=== PATIENT | female | born 1970 | race Caucasian/White ===

== ENCOUNTER 2016-12-29 10:35 | Emergency (ER) | payer OTHER ==
[~2016-12-29] VITALS: Ht 165.1 cm; Wt 73.9 kg
[~2016-12-29 10:35] MED LIST: ASPI325T8 PO; CHOL500016 PO; LACT1CAP6 PO; LEVO75TA5 PO; MELA3TAB2 PO; MONT10TA9 PO; MULT-246 PO; VITA0.4T7 PO; VITA400T4 PO
--- NOTE | 2016-12-29 11:39 | PHYS DOC ---
Past History Past Medical History: Asthma, Other Past Surgical History: Cholecystectomy, Other Alcohol Use: Rarely Drug Use: None Adult General Chief Complaint Chief Complaint: TOE PROBLEM HPI HPI Patient is a 46 year old female who presents with injured her left great toe this morning bumped it on furniture. The toenail of the great toe upwards able to walk and move the toe without difficulty. Minimal bleeding had resolved. Review of Systems Review of Systems Constitutional: Denies fever or chills [] Eyes: Denies change in visual acuity, redness, or eye pain [] HENT: Denies nasal congestion or sore throat [] Respiratory: Denies cough or shortness of breath [] Cardiovascular: No additional information not addressed in HPI [] GI: Denies abdominal pain, nausea, vomiting, bloody stools or diarrhea [] : Denies dysuria or hematuria [] Musculoskeletal: Denies back pain or joint pain except left great toe [] Integument: Denies rash or skin lesions [] Neurologic: Denies headache, focal weakness or sensory changes [] Endocrine: Denies polyuria or polydipsia [ All review systems negative except as mentioned in the history of present illness] Allergies Allergies Allergies Coded Allergies Type Severity Reaction Last Updated Verified latex Allergy Intermediate 06/21/16 Yes naproxen Allergy Intermediate 06/21/16 Yes vancomycin Allergy Intermediate 06/21/16 Yes Physical Exam Physical Exam Constitutional: Well developed, well nourished, no acute distress, non-toxic appearance. [] HENT: Normocephalic, atraumatic, bilateral external ears normal, oropharynx moist, no oral exudates, nose normal. [] Eyes: PERRLA, EOMI, conjunctiva normal, no discharge. [] Neck: Normal range of motion, no tenderness, supple, no stridor. [] Cardiovascular:Heart rate regular rhythm, no murmur [] Lungs & Thorax: Bilateral breath sounds clear to auscultation [] Abdomen: Bowel sounds normal, soft, no tenderness, no masses, no pulsatile masses. [] Skin: Warm, dry, no erythema, no rash. [] Back: No tenderness, no CVA tenderness. [] Extremities: No tenderness, no cyanosis, no clubbing, ROM intact, no edema. Left foot 2+ pulses in the dorsal and posterior arteries the nail is still in place there is just a scant amount of dried blood underneath the nail she is able to have full range of motion of the great toe without difficulty sensations intact Refill less than 1 second [] Neurologic: Alert and oriented X 3, normal motor function, normal sensory function, no focal deficits noted. [] Psychologic: Affect normal, judgement normal, mood normal. [] Current Patient Data Vital Signs Vital Signs Date Time Temp Pulse Resp B/P (MAP) Pulse Ox O2 Delivery O2 Flow Rate FiO2 12/29/16 10:40 98.2 78 18 98 Room Air EKG EKG [] Radiology/Procedures Radiology/Procedures Right foot no fracture dislocation involving the foot or great toe [] Course & Med Decision Making Course & Med Decision Making Pertinent Labs and Imaging studies reviewed. (See chart for details) X-rays unremarkable, did Coban wrap the great toe to keep the nail in place of the new nail can grow in. Patient understands she may lose the nail may not grow back. [] Dragon Disclaimer Dragon Disclaimer This chart was dictated in whole or in part using Voice Recognition software in a busy, high-work load, and often noisy Emergency Department environment. It may contain unintended and wholly unrecognized errors or omissions. Departure Departure: Impression: Primary Impression: Sprain of left great toe Additional Impression: Nail avulsion of toe Disposition: 01 HOME, SELF-CARE Condition: IMPROVED Referrals: AUGUSTINE RAMIREZ (PCP) Additional Instructions: Please wrap toe in order to keep the nail in place until it falls out and the new nail grows back in Problem Qualifiers BRENDA DIXON MD Dec 29, 2016 11:39
[2016-12-29 11:40] VITALS: BP 140/69
--- NOTE | 2016-12-29 11:44 | RAD ---
Right foot, 3 views, 12/29/2016: History: Great toe injury No fracture or dislocation is identified. IMPRESSION: No acute bony abnormality is detected.
== END 2016-12-29 11:48 | disposition home or self-care (01) ==
LOC: ER 10:35
DX: S93.502A Unspecified sprain of left great toe, initial encounter (principal); S91.202A Unspecified open wound of left great toe with damage to nail, initial encounter; J45.909 Unspecified asthma, uncomplicated; Z88.6 Allergy status to analgesic agent; Z88.1 Allergy status to other antibiotic agents; W22.03XA Walked into furniture, initial encounter; Y93.89 Activity, other specified; Y99.8 Other external cause status; Y92.89 Other specified places as the place of occurrence of the external cause; Z91.040 Latex allergy status
CPT/HCPCS: 73630; 99284

== ENCOUNTER → 2018-01-04 | Outpatient (CLI) | payer OTHER ==
[~2018-01-04] MED LIST changes: +0.9 % SODIUM CHLORIDE 10 ML VIAL ONE; +IOHEXOL 300 MG/ML 50 ML VIAL. ONE; +LIDOCAINE 1% PF 30 ML VIAL. ONE; +methylPREDNISolone ACETATE 80 MG/ML VIAL. ONE
== END | disposition home or self-care (01) ==
LOC: SURG 15:22
PROVIDERS: ATTEND Anesthesiology Pain Medicine
DX: M54.16 Radiculopathy, lumbar region (principal); J45.909 Unspecified asthma, uncomplicated; Z72.89 Other problems related to lifestyle; M19.90 Unspecified osteoarthritis, unspecified site; E06.3 Autoimmune thyroiditis; Z90.49 Acquired absence of other specified parts of digestive tract; Z98.890 Other specified postprocedural states; Z91.040 Latex allergy status; Z88.1 Allergy status to other antibiotic agents; Z88.8 Allergy status to other drugs, medicaments and biological substances; Z87.39 Personal history of other diseases of the musculoskeletal system and connective tissue; Z82.49 Family history of ischemic heart disease and other diseases of the circulatory system; Z80.8 Family history of malignant neoplasm of other organs or systems; Z79.82 Long term (current) use of aspirin; Z79.899 Other long term (current) drug therapy
CPT/HCPCS: 62323; J1040; J2001; Q9967; 62321

== ENCOUNTER → 2018-05-10 | Outpatient (CLI) | payer OTHER ==
[~2018-05-10] MED LIST changes: -0.9 % SODIUM CHLORIDE 10 ML VIAL ONE; +BUPIVACAINE MPF 0.25% 30 ML VIAL. ONE; +LIDOCAINE 1% PF 2 ML VIAL. ONE; -LIDOCAINE 1% PF 30 ML VIAL. ONE; +methylPREDNISolone ACETATE 40 MG/ML VIAL. ONE; -methylPREDNISolone ACETATE 80 MG/ML VIAL. ONE
== END | disposition home or self-care (01) ==
LOC: SURG 12:46
PROVIDERS: ATTEND Anesthesiology Pain Medicine
DX: M53.3 Sacrococcygeal disorders, not elsewhere classified (principal); M47.816 Spondylosis without myelopathy or radiculopathy, lumbar region; J45.909 Unspecified asthma, uncomplicated; M19.90 Unspecified osteoarthritis, unspecified site; Z98.890 Other specified postprocedural states; Z79.899 Other long term (current) drug therapy; Z91.040 Latex allergy status; Z88.1 Allergy status to other antibiotic agents; Z87.09 Personal history of other diseases of the respiratory system
CPT/HCPCS: 27096; J1030; J3490; Q9967

== ENCOUNTER → 2018-07-04 | Outpatient (CLI) | payer OTHER ==
[~2018-07-04] MED LIST changes: +BUPIVACAINE MPF 0.25% 10 ML VIAL. ONE; -BUPIVACAINE MPF 0.25% 30 ML VIAL. ONE; -LIDOCAINE 1% PF 2 ML VIAL. ONE; +LIDOCAINE 1% PF 30 ML VIAL. ONE; -methylPREDNISolone ACETATE 40 MG/ML VIAL. ONE; +methylPREDNISolone ACETATE 80 MG/ML VIAL. ONE
== END | disposition home or self-care (01) ==
LOC: SURG 15:07
PROVIDERS: ATTEND Anesthesiology Pain Medicine
DX: M46.1 Sacroiliitis, not elsewhere classified (principal); J45.909 Unspecified asthma, uncomplicated; J32.9 Chronic sinusitis, unspecified; M19.90 Unspecified osteoarthritis, unspecified site; R51 Headache; R53.1 Weakness; M54.9 Dorsalgia, unspecified; E07.9 Disorder of thyroid, unspecified; Z79.899 Other long term (current) drug therapy; Z98.890 Other specified postprocedural states; Z79.82 Long term (current) use of aspirin; Z91.040 Latex allergy status; Z88.8 Allergy status to other drugs, medicaments and biological substances
CPT/HCPCS: 27096; J1040; J2001; J3490; Q9967

== ENCOUNTER 2019-07-16 15:43 | Emergency (ER) | payer OTHER ==
[~2019-07-16] VITALS: Ht 165.1 cm; Wt 81.5 kg
[~2019-07-16 15:43] MED LIST changes: -BUPIVACAINE MPF 0.25% 10 ML VIAL. ONE; -IOHEXOL 300 MG/ML 50 ML VIAL. ONE; -LIDOCAINE 1% PF 30 ML VIAL. ONE; -MELA3TAB2 PO; +MELA3TAB56 PO; +MONT10TA80 PO; -MONT10TA9 PO; -methylPREDNISolone ACETATE 80 MG/ML VIAL. ONE
[2019-07-16] MEDS ORDERED: DICL50TA4 PO (17:00)
[2019-07-16] MEDS ORDERED: TRAM50TA PO (17:00)
[2019-07-16] MEDS ORDERED: METH4TAB2 PO (17:00)
--- NOTE | 2019-07-16 17:01 | PHYS DOC ---
Past History Past Medical History: Asthma, Other Past Surgical History: Cholecystectomy, Other Alcohol Use: Rarely Drug Use: None Adult General Chief Complaint Chief Complaint: HAND PROBLEM HPI HPI Patient is a 49-year-old female who presents with complaint of left wrist pain that has been ongoing for several days. Patient states that pain is progressively getting worse. She denies any injuries. She does indicate the pain is worsened when she moves her wrist. She rates pain as moderate.[] Review of Systems Review of Systems Constitutional: Denies fever or chills [] Respiratory: Denies cough or shortness of breath [] Cardiovascular: No additional information not addressed in HPI [] Musculoskeletal: Positive left wrist pain [] Integument: Denies rash or skin lesions [] Allergies Allergies Allergies Coded Allergies Type Severity Reaction Last Updated Verified latex Allergy Intermediate 06/21/16 Yes naproxen Allergy Intermediate 06/21/16 Yes vancomycin Allergy Intermediate 06/21/16 Yes Physical Exam Physical Exam Constitutional: Well developed, well nourished, no acute distress, non-toxic appearance. [] Cardiovascular: Regular rate and rhythm[] Lungs & Thorax: Bilateral breath sounds clear to auscultation [] Skin: Warm, dry, no erythema, no rash. [] Extremities: Examination of left wrist demonstrates tenderness to palpation in the snuffbox as well as along the radial/lateral aspect of the wrist with positive Lynn test.. [] Current Patient Data Vital Signs Vital Signs Date Time Temp Pulse Resp B/P (MAP) Pulse Ox O2 Delivery O2 Flow Rate FiO2 07/16/19 15:57 98.3 94 16 98 Room Air EKG EKG [] Radiology/Procedures Radiology/Procedures [] Impressions: PROCEDURE: WRIST 3V LEFT Left wrist 3 views 07/16/2019. Reason for exam: Pain. No history of trauma is given. No fracture or dislocation is seen. There is no apparent joint narrowing or destructive process. IMPRESSION: No apparent acute abnormality. Electronically signed by: Zaire Ram Jr., MD (07/16/2019 5:16 PM) [facility] Course & Med Decision Making Course & Med Decision Making Pertinent Labs and Imaging studies reviewed. (See chart for details) [] Dragon Disclaimer Dragon Disclaimer This electronic medical record was generated, in whole or in part, using a voice recognition dictation system. Departure Departure: Impression: Primary Impression: De Quervain's tenosynovitis, left Disposition: 01 HOME, SELF-CARE Condition: STABLE Referrals: JAYDEN ROLAND DO (PCP) Patient Instructions: De Quervain's Tenosynovitis-[employer] Scripts Tramadol Hcl (TRAMADOL HCL) 50 Mg Tablet 50 MG PO PRN Q6HRS PRN for PAIN, #12 TAB Prov: MIGUEL CALDERON Jr. DO 07/16/19 Methylprednisolone (MEDROL) 4 Mg Tab.ds.pk 1 PKG PO UD for inflammation, #1 PKG Prov: MIGUEL CALDERON Jr. DO 07/16/19 Diclofenac Sodium (DICLOFENAC SODIUM) 50 Mg Tablet.dr 1 TAB PO BID PRN for PAIN, #20 TAB Prov: MIGUEL CALDERON Jr. DO 07/16/19 MIGUEL CALDERON Jr. DO Jul 16, 2019 17:00
[2019-07-16 17:09] VITALS: BP 135/83
--- NOTE | 2019-07-16 17:19 | RAD ---
Left wrist 3 views 07/16/2019. Reason for exam: Pain. No history of trauma is given. No fracture or dislocation is seen. There is no apparent joint narrowing or destructive process. IMPRESSION: No apparent acute abnormality. Electronically signed by: Zaire Ram Jr., MD (07/16/2019 5:16 PM) [facility]
== END 2019-07-16 17:07 | disposition home or self-care (01) ==
LOC: ER 15:43
DX: M65.4 Radial styloid tenosynovitis [de Quervain] (principal); J45.909 Unspecified asthma, uncomplicated; Z88.1 Allergy status to other antibiotic agents; Z91.040 Latex allergy status; Z88.8 Allergy status to other drugs, medicaments and biological substances
CPT/HCPCS: 73110; 99284